=== PATIENT | male | born 1975 | race Caucasian/White ===

== ENCOUNTER 2019-05-22 00:07 | Emergency (ER) | payer BC ==
[~2019-05-22] VITALS: Ht 180.3 cm; Wt 81.7 kg
[2019-05-22] MEDS ORDERED: TRIMETHOPRIM /P10 M1 OPHTHALMIC (02:21)
[2019-05-22 02:41] VITALS: BP 140/98
== END 2019-05-22 02:42 | disposition home or self-care (01) ==
LOC: ER 00:07
DX: H10.89 Other conjunctivitis (principal); B96.89 Other specified bacterial agents as the cause of diseases classified elsewhere; F17.210 Nicotine dependence, cigarettes, uncomplicated

== ENCOUNTER 2019-05-24 10:42 | Emergency (ER) | payer BC ==
[~2019-05-24] VITALS: Ht 180.3 cm; Wt 81.7 kg
[~2019-05-24 10:42] MED LIST: TRIMETHOPRIM /P10 M1 OPHTHALMIC
[2019-05-24] MEDS ORDERED: EYE ITCH RELIEF5 ML OPHTHALMIC ×2 (11:58→12:16)
[2019-05-24] MEDS ORDERED: CIPROFLOXIN HC2.5 M1 OPHTHALMIC (11:58)
[2019-05-24] MEDS ORDERED: ERYTHROMYCIN E3.5 G3 OPHTHALMIC (12:16)
[2019-05-24 12:31] VITALS: BP 143/96
== END 2019-05-24 12:31 | disposition home or self-care (01) ==
LOC: ER 10:42
DX: H10.31 Unspecified acute conjunctivitis, right eye (principal); F17.210 Nicotine dependence, cigarettes, uncomplicated; Z90.49 Acquired absence of other specified parts of digestive tract

== ENCOUNTER 2020-03-30 20:27 | Emergency (ER) | payer BC ==
[~2020-03-30] VITALS: Ht 180.3 cm; Wt 88.5 kg
[~2020-03-30 20:27] MED LIST changes: +CIPROFLOXIN HC2.5 M1 OPHTHALMIC; +ERYTHROMYCIN E3.5 G3 OPHTHALMIC; +EYE ITCH RELIEF5 ML OPHTHALMIC
[2020-03-30 21:02] LABS: ABSOLUTE NEUTROPHILS 5.2 thou/uL (1.4-8.2); BASOPHILS 0.9 % (0.0-2.0); EOSINOPHILS 1.6 % (0.0-3.0); HEMATOCRIT 46.9 % (42.0-52.0); HEMOGLOBIN 15.9 gm/dL (14.0-18.0); LYMPHOCYTES 27.2 % (24.0-44.0); MCH 30.2 pg (26.0-34.0); MCHC 33.8 g/dL (28.0-37.0); MCV 89.3 fL (80.0-100.0); MONOCYTES 7.3 % (1.0-8.0); PLATELET COUNT 363 thou/uL (150-400); RBC 5.25 mil/uL (4.50-6.00); RDW 13.5 % (10.5-14.5); WBC 8.3 thou/uL (4.0-11.0)
[2020-03-30 21:16] LABS: ALBUMIN 3.8 g/dL (3.4-5.0); BUN 13 mg/dL (7-18); CO2 29 mmol/L (21-32); GLUCOSE 92 mg/dL (74-106); LIPASE 140 U/L (73-393); SGOT < 5 U/L (15-37); SGPT 22 U/L (30-65); TOTAL BILIRUBIN 0.3 mg/dL (0.2-1.0); TOTAL PROTEIN 7.5 g/dL (6.4-8.2)
[2020-03-30 21:23] LABS: ANION GAP 7 mmol/L (7-16); CHLORIDE 102 mmol/L (98-107); POTASSIUM 3.7 mmol/L (3.5-5.1); SODIUM 138 mmol/L (136-145)
[2020-03-31 02:50] VITALS: BP 135/96
== END 2020-03-31 02:51 | disposition home or self-care (01) ==
LOC: ER 20:27
PROVIDERS: Emergency Medicine
DX: M54.9 Dorsalgia, unspecified (principal); F17.210 Nicotine dependence, cigarettes, uncomplicated; Z79.2 Long term (current) use of antibiotics; Z79.899 Other long term (current) drug therapy; Z90.49 Acquired absence of other specified parts of digestive tract